=== PATIENT | female | born 1935 | race Two or more races ===

== ENCOUNTER 2016-03-11 21:11 | Inpatient (IN) | payer OTHER ==
[~2016-03-11] VITALS: Ht 157.5 cm; Wt 60.9 kg
[2016-03-11 22:47] LABS: BASO % 0 % (0-3); EOS % 1 % (0-3); LYMPH # 0.9 x10^3/uL (1.0-4.8); LYMPH % 9 % (24-48); MEAN CORPUSCULAR HEMOGLOBIN 31 pg (25-35); MEAN CORPUSCULAR HGB CONC 32 g/dL (31-37); MEAN CORPUSCULAR VOLUME 96 fL (79-100); MONO % 5 % (0-9); NEUT % 86 % (31-73); PLATELET COUNT 117 x10^3/uL (140-400); RED BLOOD COUNT 1.22 x10^6/uL (3.50-5.40); RED CELL DISTRIBUTION WIDTH 20.1 % (11.5-14.5); WHITE BLOOD COUNT 9.8 x10^3/uL (4.0-11.0)
[2016-03-11 22:53] LABS: HEMATOCRIT 11.7 % (36.0-47.0); HEMOGLOBIN 3.8 g/dL (12.0-15.5)
[2016-03-11 22:58] LABS: CALCIUM 7.7 mg/dL (8.5-10.1); CREATININE 1.2 mg/dL (0.6-1.0); POTASSIUM 4.3 mmol/L (3.5-5.1)
[2016-03-11] MEDS ORDERED: ONDANSETRON PF 4 MG/2 ML VIAL. IV PRN (23:00)
[2016-03-11] MEDS ORDERED: ACETAMINOPHEN 325 MG TABLET. PO PRN (23:00)
[2016-03-11 23:03] LABS: ALBUMIN 2.1 g/dL (3.4-5.0); ALBUMIN/GLOBULIN RATIO 0.6 (1.0-1.7); TOTAL BILIRUBIN 0.3 mg/dL (0.2-1.0); TOTAL PROTEIN 5.6 g/dL (6.4-8.2)
--- NOTE | 2016-03-11 23:09 | PHYS DOC ---
Past Medical History Past Medical History: Diabetes-Type II, GERD, Stroke, Other Additional Past Medical Histor: sleep problems Past Surgical History: Other Additional Past Surgical Histo: esophogus Alcohol Use: None Drug Use: None Adult General Chief Complaint Chief Complaint: WEAKNESS/GENERALIZED HPI HPI 80-year-old female with relatively recent history of a left scopic cholecystectomy presents with a several day history of progressive shortness of breath and dyspnea on exertion. Family states she's really been unable to give much at all because she's been so short of breath. She denies any chest pain. She denies any lower extremity swelling. She is not any fever chills sweats cough or congestion. She denies any hemoptysis. Family thinks she looks a little pale but they've not noticed any melena or hematemesis or hematochezia. [ ] Review of Systems Review of Systems Constitutional: Denies fever or chills [] Eyes: Denies change in visual acuity, redness, or eye pain [] HENT: Denies nasal congestion or sore throat [] Respiratory: Per history of present illness [] Cardiovascular: No additional information not addressed in HPI [] GI: Denies abdominal pain, nausea, vomiting, bloody stools or diarrhea [] : Denies dysuria or hematuria [] Musculoskeletal: Denies back pain or joint pain [] Integument: Denies rash or skin lesions [] Neurologic: Denies headache, focal weakness or sensory changes [] Endocrine: Denies polyuria or polydipsia [] Current Medications Current Medications Current Medications Medications (Trade) Dose Ordered Sig/Collin Start Time Stop Time Status Last Admin Dose Admin Acetaminophen (Tylenol) 650 mg PRN Q4HRS PRN 03/11/16 23:00 03/12/16 22:59 Ondansetron HCl (Zofran) 4 mg PRN Q8HRS PRN 03/11/16 23:00 03/12/16 08:58 DC Allergies Allergies Allergies Coded Allergies Type Severity Reaction Last Updated Verified No Known Drug Allergies 03/11/16 No Physical Exam Physical Exam Constitutional: Well developed, acutely ill. [] HENT: Normocephalic, atraumatic, bilateral external ears normal, oropharynx moist, no oral exudates, nose normal. [] Eyes: PERRLA, EOMI, conjunctiva normal, no discharge. [] Neck: Normal range of motion, no tenderness, supple, no stridor. [] Cardiovascular:Heart rate regular rhythm, no murmur [] Lungs & Thorax: Bilateral breath sounds clear to auscultation [] Abdomen: Bowel sounds normal, soft, no tenderness, no masses, no pulsatile masses. [] Skin: Very pale [] Back: No tenderness, no CVA tenderness. [] Extremities: No tenderness, no cyanosis, no clubbing, ROM intact, no edema. [] Neurologic: Alert and oriented X 3, normal motor function, normal sensory function, no focal deficits noted. [] Psychologic: Depressed affect. [] Current Patient Data Vital Signs Vital Signs Date Time Temp Pulse Resp B/P Pulse Ox O2 Delivery O2 Flow Rate FiO2 03/11/16 23:00 96 121/60 97 Room Air 03/11/16 21:20 97.5 14 97.5 Lab Values Laboratory Tests Test 03/11/16 22:30 White Blood Count 9.8x10^3/uL (4.0-11.0) Red Blood Count 1.22x10^6/uL (3.50-5.40) L Hemoglobin 3.8g/dL (12.0-15.5) *L Hematocrit 11.7% (36.0-47.0) *L Mean Corpuscular Volume 96fL (79-100) Mean Corpuscular Hemoglobin 31pg (25-35) Mean Corpuscular Hemoglobin Concent 32g/dL (31-37) Red Cell Distribution Width 20.1% (11.5-14.5) H Platelet Count 117x10^3/uL (140-400) L Neutrophils (%) (Auto) 86% (31-73) H Lymphocytes (%) (Auto) 9% (24-48) L Monocytes (%) (Auto) 5% (0-9) Eosinophils (%) (Auto) 1% (0-3) Basophils (%) (Auto) 0% (0-3) Neutrophils # (Auto) 8.4x10^3uL (1.8-7.7) H Lymphocytes # (Auto) 0.9x10^3/uL (1.0-4.8) L Monocytes # (Auto) 0.4x10^3/uL (0.0-1.1) Eosinophils # (Auto) 0.0x10^3/uL (0.0-0.7) Basophils # (Auto) 0.0x10^3/uL (0.0-0.2) Segmented Neutrophils % 95% (35-66) H Lymphocytes % 4% (24-48) L Monocytes % 1% (0-10) Platelet Estimate Decreased (ADEQUATE) Polychromasia Slight Hypochromasia Mod Basophilic Stippling Present Anisocytosis Mod Sodium Level 143mmol/L (136-145) Potassium Level 4.3mmol/L (3.5-5.1) Chloride Level 112mmol/L (98-107) H Carbon Dioxide Level 25mmol/L (21-32) Anion Gap 6 (6-14) Blood Urea Nitrogen 34mg/dL (7-20) H Creatinine 1.2mg/dL (0.6-1.0) H Estimated GFR (Cockcroft-Gault) 43.0 BUN/Creatinine Ratio 28 (6-20) H Glucose Level 141mg/dL (70-99) H Calcium Level 7.7mg/dL (8.5-10.1) L Total Bilirubin 0.3mg/dL (0.2-1.0) Aspartate Amino Transferase (AST) 14U/L (15-37) L Alanine Aminotransferase (ALT) 13U/L (14-59) L Alkaline Phosphatase 60U/L (46-116) Troponin I Quantitative 0.053ng/mL (0.000-0.055) TC-Yjr-W-Type Natriuretic Peptide 4254pg/mL (0-449) H Total Protein 5.6g/dL (6.4-8.2) L Albumin 2.1g/dL (3.4-5.0) L Albumin/Globulin Ratio 0.6 (1.0-1.7) L Laboratory Tests 03/11/16 22:30 Laboratory Tests 03/11/16 22:30 EKG EKG [] Radiology/Procedures Radiology/Procedures [] Course & Med Decision Making Course & Med Decision Making Pertinent Labs and Imaging studies reviewed. (See chart for details) [ED course: Evaluation reveals an 80-year-old female with significant anemia. I discussed with the family that I feel like the anemia is causing the patient's symptoms. I typed and crossed for 3 units of packed cells. I spoke with Dr. Umanzor who agreed to admit the patient for further evaluation and treatment. I will also consult GI.] Ionaon Disclaimer Dragon Disclaimer This electronic medical record was generated, in whole or in part, using a voice recognition dictation system. Departure Departure Impression: Primary Impression: Symptomatic anemia Disposition: ADMITTED INPATIENT Admitting Physician: Meena Umanzor Condition: GUARDED Referrals: CEM VALADEZ DO (PCP) DIANA HUITRON DO Mar 11, 2016 23:09
[2016-03-11 23:21] LABS: PLT ESTIMATE DECREASED (ADEQUATE)
[2016-03-11 23:22] LABS: ANISOCYTOSIS MOD; HYPOCHROMIA MOD; POLYCHROMASIA SLIGHT
[2016-03-12] VITALS (30 sets, daily range): BP systolic 71–153; BP diastolic 25–79
--- NOTE | 2016-03-12 00:51 | ACF ---
Admission Forms Criteria ANEMIA, IRON DEFICIENCY OR UNSPECIFIED Clinical Indications for Inpatient Care (Place 'X' for any and all applicable criteria): Admission is indicated for ANY ONE of the following(1)(2)(3)(4)(5)(6)(7): [X] I. Inpatient admission required rather than observation care (Also use Anemia, Iron Deficiency or Unspecified: Observation Care guideline as appropriate) because of ANY ONE of the following: [] a) Hemodynamic instability that is severe or persistent [] b) Active bleeding that cannot be rapidly controlled [X] c) CVS symptoms (i.e., dyspnea, chest pain, heart failure) that are severe or persistent [] d) Neurologic symptoms (i.e., cognitive impairment, recurrent syncope or near syncope) that are severe or persistent [] e) Cardiac arrhythmias of immediate concern [] f) Acute peripheral ischemia (e.g., pulseless, cool, mottled, or cyanotic extremity) [] g) High-risk low platelet count [] h) Acute renal failure [] i) Ongoing transfusion for blood loss (greater than 2 units) [] j) IV fluid to replace significant ongoing (eg, >24 hours) losses (> 3 L/m2 per day) [] k) Pulmonary artery catheter monitoring [] l) Supplemental oxygen or respiratory treatments for over 24 hours that are performable only in acute inpatient setting [] m) Immediate inpatient surgery [] n) Other condition, treatment or monitoring requiring inpatient admission [] II Active massive hemorrhage [] III. Active hemolysis with rapidly progressive anemia [A](6) Extended stay beyond goal length of stay may be needed for (17)(18) []a) Diagnosed cause of anemia requiring longer hospitalization (eg, active GI bleeding, immune hemolysis requiring electrophoresis, complications of malignancy requiring acute care []b) Continued emergent anemia indicators (23) []c) Transfusion reactions []d) Associated leukopenia or thrombocytopenia needing inpatient care []e) Active comorbidities (eg, renal failure, heart failure) The original [facility] content created by [facility] has been revised. The portions of the content which have been revised are identified through the use of italic text or in bold. [facility] [place] Guidelines has neither reviewed nor approved the modified material. All other unmodified content is copyright [facility]. Please see references footnoted in the original [facility] edition 2016 Admission Criteria Met?: Yes FRANCESCA NASSAR Mar 12, 2016 00:51
[2016-03-12] MEDS ORDERED: FUROSEMIDE 20 MG/2 ML VIAL IVP ONE (04:00)
--- NOTE | 2016-03-12 06:04 | EKG ---
[facility] [address] [place] [address] Test Date: 2016-03-11 Test Time: 21:34:18 Pat Name: STEPHEN DIXON Department: Room: Gender: F Laundry Helper: : 1935 Requested By: DIANA HUITRON Order Number: [id number] Reading MD: Measurements Intervals [place] Rate: 91 P: 31 IL: 140 QRS: -8 QRSD: 68 T: 7 QT: 354 QTc: 437 Interpretive Statements SINUS RHYTHM LEFTWARD AXIS NO SPECIFIC ECG ABNORMALITIES RI6.01 No previous ECG available for comparison
--- NOTE | 2016-03-12 08:02 | PDOC2 ---
GI CONSULT Reason For Consult: Anemia HPI: HPI: 80 y/o female. History from chart, staff, and daughter Carla via translator/interpreter phone - history is difficult. Evaluated in the ER for increased dyspnea. Labs show Hgb 3.8, normal indices, plt count 117, BUN 34, Cr 1.2, BNP 4254. She has been transfused two units. She was recently admitted at and had a cholecystectomy for stones (?and possible ERCP for "stones in her pancreas "). Records provided by family include only a med list which includes ASA, Pradaxa, and omeprazole; it's unclear exactly what she has been taking. Her daughter says that she has c/o "mouth pain" and then points to her chest. She has not had a bowel movement for 2 days but prior to that stools were black and loose. It's unclear if she's had previous EGD or colonoscopy. Her daughter denies previous h/o anemia. No obvious bleeding per RN. PMH: PMH: DM, CVA w/ left-sided weakness (daughter says she doesn't walk), cholecystectomy FH: Family History: No pertinent hx Social History: Smoke: No Drugs: None ROS: From daughter and pt: GEN: Denies fevers, chills, sweats HEENT: Denies blurred vision, sore throat CV: +chest pain RESP: +dyspnea GI: Per HPI : Denies hematuria, dysuria ENDO: Denies weight changes NEURO: Denies confusion, dizziness MSK: +weakness SKIN: Denies jaundice, pruritus VItals: Vitals: Vital Signs Date Time Temp Pulse Resp B/P Pulse Ox O2 Delivery O2 Flow Rate FiO2 03/12/16 07:00 66 11 119/57 100 Room Air 03/12/16 06:14 98.8 98.8 Labs: Labs: Laboratory Tests Test 03/11/16 22:30 White Blood Count 9.8x10^3/uL (4.0-11.0) Red Blood Count 1.22x10^6/uL (3.50-5.40) Hemoglobin 3.8g/dL (12.0-15.5) Hematocrit 11.7% (36.0-47.0) Mean Corpuscular Volume 96fL (79-100) Mean Corpuscular Hemoglobin 31pg (25-35) Mean Corpuscular Hemoglobin Concent 32g/dL (31-37) Red Cell Distribution Width 20.1% (11.5-14.5) Platelet Count 117x10^3/uL (140-400) Neutrophils (%) (Auto) 86% (31-73) Lymphocytes (%) (Auto) 9% (24-48) Monocytes (%) (Auto) 5% (0-9) Eosinophils (%) (Auto) 1% (0-3) Basophils (%) (Auto) 0% (0-3) Neutrophils # (Auto) 8.4x10^3uL (1.8-7.7) Lymphocytes # (Auto) 0.9x10^3/uL (1.0-4.8) Monocytes # (Auto) 0.4x10^3/uL (0.0-1.1) Eosinophils # (Auto) 0.0x10^3/uL (0.0-0.7) Basophils # (Auto) 0.0x10^3/uL (0.0-0.2) Segmented Neutrophils % 95% (35-66) Lymphocytes % 4% (24-48) Monocytes % 1% (0-10) Platelet Estimate Decreased (ADEQUATE) Polychromasia Slight Hypochromasia Mod Basophilic Stippling Present Anisocytosis Mod Sodium Level 143mmol/L (136-145) Potassium Level 4.3mmol/L (3.5-5.1) Chloride Level 112mmol/L (98-107) Carbon Dioxide Level 25mmol/L (21-32) Anion Gap 6 (6-14) Blood Urea Nitrogen 34mg/dL (7-20) Creatinine 1.2mg/dL (0.6-1.0) Estimated GFR (Cockcroft-Gault) 43.0 BUN/Creatinine Ratio 28 (6-20) Glucose Level 141mg/dL (70-99) Calcium Level 7.7mg/dL (8.5-10.1) Total Bilirubin 0.3mg/dL (0.2-1.0) Aspartate Amino Transf (AST/SGOT) 14U/L (15-37) Alanine Aminotransferase (ALT/SGPT) 13U/L (14-59) Alkaline Phosphatase 60U/L (46-116) Troponin I Quantitative 0.053ng/mL (0.000-0.055) EZ-Qsx-V-Type Natriuretic Peptide 4254pg/mL (0-449) Total Protein 5.6g/dL (6.4-8.2) Albumin 2.1g/dL (3.4-5.0) Albumin/Globulin Ratio 0.6 (1.0-1.7) Allergies: Coded Allergies: No Known Drug Allergies (Unverified , 03/11/16) Medications: Current Medications Medications (Trade) Dose Ordered Sig/Collin Route PRN Reason Start Time Stop Time Status Last Admin Dose Admin Furosemide (Lasix) 20 mg 1X ONCE IVP 03/12/16 04:00 03/12/16 04:01 DC 03/12/16 06:07 PE: GEN: NAD HEENT: Atraumatic, PERRL LUNGS: CTAB anteriorly HEART: S1S2 ABD: NABS, S/ND/NT EXTREMITY: No edema SKIN: No rashes, no jaundice NEURO/PSYCH: doesn't speak Welsh, makes eye contact A/P: A/P: Anemia -Hgb 3.8 in ER, transfusing -on Pradaxa and ASA, ?omeprazole -denies history of Black stool -no BM for 2 days, previously reported as black and loose S/p cholecystectomy -recently at (says discharge 1 week ago) SOA, elevated BNP, h/o CVA -- History is difficult w/ language barrier, even w/ translator/interpreter phone. Start PPI drip. Agree w/ transfusion. NPO. Check CXR and CT A/P r/o retroperitoneal bleed. Consider EGD later. BALDEMAR TORRES Mar 12, 2016 08:02
[2016-03-12] MEDS ORDERED: IOHEXOL 240 MG/ML 50ML VIAL. PO ONE (08:45)
[2016-03-12] MEDS ORDERED: CONTRAST GIVEN MC PRN (08:45)
[2016-03-12] MEDS ORDERED: ONDANSETRON PF 4 MG/2 ML VIAL. IV PRN (08:56)
[2016-03-12] MEDS ORDERED: ASPI81TA2 PO (09:25)
[2016-03-12] MEDS ORDERED: METO50TA2 PO (09:25)
[2016-03-12] MEDS ORDERED: DABI150C PO (09:25)
[2016-03-12] MEDS: PANTOPRAZOLE SODIUM IV 80 MG in IV NORMAL SALINE 100ML 100 ML IV SCH ×2 (09:28→14:55)
[2016-03-12] MEDS: NYSTATIN TOPICAL POWDER 15GM BOTTLE. TP SCH ×2 (09:29→21:30)
[2016-03-12 09:39] LABS: BASO % 0 % (0-3); EOS % 1 % (0-3); HEMATOCRIT 30.6 % (36.0-47.0); HEMOGLOBIN 10.3 g/dL (12.0-15.5); LYMPH # 1.3 x10^3/uL (1.0-4.8); LYMPH % 12 % (24-48); MEAN CORPUSCULAR HEMOGLOBIN 31 pg (25-35); MEAN CORPUSCULAR HGB CONC 34 g/dL (31-37); MEAN CORPUSCULAR VOLUME 91 fL (79-100); MONO % 6 % (0-9); NEUT % 81 % (31-73); PLATELET COUNT 108 x10^3/uL (140-400); RED BLOOD COUNT 3.37 x10^6/uL (3.50-5.40); RED CELL DISTRIBUTION WIDTH 14.8 % (11.5-14.5); WHITE BLOOD COUNT 10.6 x10^3/uL (4.0-11.0)
--- NOTE | 2016-03-12 10:13 | PDOC1 ---
History and Physical Date of Admission Date of Admission DATE: 03/12/16 TIME: 10:02 Identification/Chief Complaint Chief Complaint weak, change in MS Source Source: Caregiver, Chart review History of Present Illness History of Present Illness 80 y.o female who speaks no [place], hx obtained thru kyrgyz line sign language interpreter from the dtr who barely speaks any [place]. REcently dcd from 1 weeka go from what sound slike maybe laparoscopic cholecystectomy? NO lap scars appreciable Dtr relays picture of jaundice, pt stayed 7 days in < had emesis etc and resolved. SInce dcd to home, has been having significant tarry stools per dtr, no hematemesis, DTr noticed dec mentation, eyes always closed, poor pO. Pt is wheel chair bnound mostly, has a lot of contractures in legs and R hand. Claims had a hx stroke in the past but it was the left side that was weak,. Pt TAKES ASA 79 and IBUOROFEN 600-800 mg BID every day for 6-8 mos now for "leg pains". DTr agreeable to rehab if needed Hgb at ER was 3, no coags, Got 3 pRBC last night (after discussion with ER MD), and hgb 10 now, Pt for CT abd as per gI Pt has never had Cscope done, denies family hx colon ca. Pt sounds like has never had BT in the past Looking at [facility] med, pt also on PRADAXA... need to ask via sign language interpreter again why Past Medical History Cardiovascular: HTN GI: Other (black stools) Rheumatologic: Other (poss OA, contractures legs) Past Surgical History Past Surgical History: Cholecystectomy, Other Family History Family History: No Significant Social History Smoke: No ALCOHOL: none Drugs: None Current Problem List Problem List Problems Medical Problems: (1) Symptomatic anemia Status: Acute Problems: Current Medications Current Medications Current Medications Ondansetron HCl (Zofran) 4 mg PRN Q8HRS PRN IV NAUSEA/VOMITING; Start 03/11/16 at 23:00; Stop 03/12/16 at 08:58; Status DC Acetaminophen (Tylenol) 650 mg PRN Q4HRS PRN PO FEVER; Start 03/11/16 at 23:00; Stop 03/12/16 at 22:59 Furosemide (Lasix) 20 mg 1X ONCE IVP Last administered on 03/12/16 06:07; Start 03/12/16 at 04:00; Stop 03/12/16 at 04:01; Status DC Nystatin 1 ryan 1 ryan BID TP Last administered on 03/12/16 09:29; Start 03/12/16 at 09:00 Pantoprazole Sodium/Sodium Chloride (Protonix Iv/Iv Sodium Chloride 0.9% 100ml) 100 ml @ 10 mls/hr Q10H IV Last administered on 03/12/16 09:28; Start 03/12/16 at 08:30 Iohexol (Omnipaque 240 Mg/ml) 30 ml 1X ONCE PO ; Start 03/12/16 at 08:45; Stop 03/12/16 at 08:46; Status DC Info (Do NOT chart on this entry -- for MONITORING) 1 each PRN DAILY PRN MC SEE COMMENTS; Start 03/12/16 at 08:45; Stop 03/14/16 at 08:44 Ondansetron HCl (Zofran) 4 mg PRN Q6HRS PRN IV NAUSEA/VOMITING; Start 03/12/16 at 08:56 Active Scripts Active Reported Metoprolol Tartrate 50 Mg Tablet 1 Tab PO BID Pradaxa (Dabigatran Etexilate Mesylate) 150 Mg Capsule 1 Cap PO BID Aspirin 81 Mg Tab.chew 81 Mg PO Allergies Allergies: Coded Allergies: No Known Drug Allergies (Unverified , 03/11/16) ROS Review of System cant be obtained - refer to HPI Physical Exam General: No acute distress, Other (eyes closed, pale ) HEENT: Atraumatic, PERRLA, EOMI Lungs: Normal air movement Heart: S1S2, RRR, no thrills, no rubs, no gallops Cardiovascular: S1, S2 Breasts: Normal Abdomen: Normal bowel sounds Rectal Exam: not examined PELVIC: Nml ext genitalia Extremities: No clubbing, No cyanosis, No edema, Normal pulses, No tenderness/ swelling Skin: Other (palllor) Neuro: Other (cant be fully assessed) Vitals Vitals Vital Signs Date Time Temp Pulse Resp B/P Pulse Ox O2 Delivery O2 Flow Rate FiO2 03/12/16 08:00 98.4 60 12 130/54 100 Room Air 98.4 Labs Labs Laboratory Tests Test 03/11/16 22:30 03/12/16 08:53 03/12/16 09:25 White Blood Count 9.8x10^3/uL (4.0-11.0) 10.6x10^3/uL (4.0-11.0) Red Blood Count 1.22x10^6/uL (3.50-5.40) 3.37x10^6/uL (3.50-5.40) Hemoglobin 3.8g/dL (12.0-15.5) 10.3g/dL (12.0-15.5) Hematocrit 11.7% (36.0-47.0) 30.6% (36.0-47.0) Mean Corpuscular Volume 96fL (79-100) 91fL (79-100) Mean Corpuscular Hemoglobin 31pg (25-35) 31pg (25-35) Mean Corpuscular Hemoglobin Concent 32g/dL (31-37) 34g/dL (31-37) Red Cell Distribution Width 20.1% (11.5-14.5) 14.8% (11.5-14.5) Platelet Count 117x10^3/uL (140-400) 108x10^3/uL (140-400) Neutrophils (%) (Auto) 86% (31-73) 81% (31-73) Lymphocytes (%) (Auto) 9% (24-48) 12% (24-48) Monocytes (%) (Auto) 5% (0-9) 6% (0-9) Eosinophils (%) (Auto) 1% (0-3) 1% (0-3) Basophils (%) (Auto) 0% (0-3) 0% (0-3) Neutrophils # (Auto) 8.4x10^3uL (1.8-7.7) 8.6x10^3uL (1.8-7.7) Lymphocytes # (Auto) 0.9x10^3/uL (1.0-4.8) 1.3x10^3/uL (1.0-4.8) Monocytes # (Auto) 0.4x10^3/uL (0.0-1.1) 0.6x10^3/uL (0.0-1.1) Eosinophils # (Auto) 0.0x10^3/uL (0.0-0.7) 0.1x10^3/uL (0.0-0.7) Basophils # (Auto) 0.0x10^3/uL (0.0-0.2) 0.0x10^3/uL (0.0-0.2) Segmented Neutrophils % 95% (35-66) Lymphocytes % 4% (24-48) Monocytes % 1% (0-10) Platelet Estimate Decreased (ADEQUATE) Polychromasia Slight Hypochromasia Mod Basophilic Stippling Present Anisocytosis Mod Sodium Level 143mmol/L (136-145) Potassium Level 4.3mmol/L (3.5-5.1) Chloride Level 112mmol/L (98-107) Carbon Dioxide Level 25mmol/L (21-32) Anion Gap 6 (6-14) Blood Urea Nitrogen 34mg/dL (7-20) Creatinine 1.2mg/dL (0.6-1.0) Estimated GFR (Cockcroft-Gault) 43.0 BUN/Creatinine Ratio 28 (6-20) Glucose Level 141mg/dL (70-99) Calcium Level 7.7mg/dL (8.5-10.1) Total Bilirubin 0.3mg/dL (0.2-1.0) Aspartate Amino Transf (AST/SGOT) 14U/L (15-37) Alanine Aminotransferase (ALT/SGPT) 13U/L (14-59) Alkaline Phosphatase 60U/L (46-116) Troponin I Quantitative 0.053ng/mL (0.000-0.055) QF-Rxr-B-Type Natriuretic Peptide 4254pg/mL (0-449) Total Protein 5.6g/dL (6.4-8.2) Albumin 2.1g/dL (3.4-5.0) Albumin/Globulin Ratio 0.6 (1.0-1.7) Glucose (Fingerstick) 106mg/dL (70-99) Laboratory Tests Test 03/11/16 22:30 03/12/16 08:53 03/12/16 09:25 White Blood Count 9.8x10^3/uL (4.0-11.0) 10.6x10^3/uL (4.0-11.0) Red Blood Count 1.22x10^6/uL (3.50-5.40) 3.37x10^6/uL (3.50-5.40) Hemoglobin 3.8g/dL (12.0-15.5) 10.3g/dL (12.0-15.5) Hematocrit 11.7% (36.0-47.0) 30.6% (36.0-47.0) Mean Corpuscular Volume 96fL (79-100) 91fL (79-100) Mean Corpuscular Hemoglobin 31pg (25-35) 31pg (25-35) Mean Corpuscular Hemoglobin Concent 32g/dL (31-37) 34g/dL (31-37) Red Cell Distribution Width 20.1% (11.5-14.5) 14.8% (11.5-14.5) Platelet Count 117x10^3/uL (140-400) 108x10^3/uL (140-400) Neutrophils (%) (Auto) 86% (31-73) 81% (31-73) Lymphocytes (%) (Auto) 9% (24-48) 12% (24-48) Monocytes (%) (Auto) 5% (0-9) 6% (0-9) Eosinophils (%) (Auto) 1% (0-3) 1% (0-3) Basophils (%) (Auto) 0% (0-3) 0% (0-3) Neutrophils # (Auto) 8.4x10^3uL (1.8-7.7) 8.6x10^3uL (1.8-7.7) Lymphocytes # (Auto) 0.9x10^3/uL (1.0-4.8) 1.3x10^3/uL (1.0-4.8) Monocytes # (Auto) 0.4x10^3/uL (0.0-1.1) 0.6x10^3/uL (0.0-1.1) Eosinophils # (Auto) 0.0x10^3/uL (0.0-0.7) 0.1x10^3/uL (0.0-0.7) Basophils # (Auto) 0.0x10^3/uL (0.0-0.2) 0.0x10^3/uL (0.0-0.2) Segmented Neutrophils % 95% (35-66) Lymphocytes % 4% (24-48) Monocytes % 1% (0-10) Platelet Estimate Decreased (ADEQUATE) Polychromasia Slight Hypochromasia Mod Basophilic Stippling Present Anisocytosis Mod Sodium Level 143mmol/L (136-145) Potassium Level 4.3mmol/L (3.5-5.1) Chloride Level 112mmol/L (98-107) Carbon Dioxide Level 25mmol/L (21-32) Anion Gap 6 (6-14) Blood Urea Nitrogen 34mg/dL (7-20) Creatinine 1.2mg/dL (0.6-1.0) Estimated GFR (Cockcroft-Gault) 43.0 BUN/Creatinine Ratio 28 (6-20) Glucose Level 141mg/dL (70-99) Calcium Level 7.7mg/dL (8.5-10.1) Total Bilirubin 0.3mg/dL (0.2-1.0) Aspartate Amino Transf (AST/SGOT) 14U/L (15-37) Alanine Aminotransferase (ALT/SGPT) 13U/L (14-59) Alkaline Phosphatase 60U/L (46-116) Troponin I Quantitative 0.053ng/mL (0.000-0.055) RR-Ema-F-Type Natriuretic Peptide 4254pg/mL (0-449) Total Protein 5.6g/dL (6.4-8.2) Albumin 2.1g/dL (3.4-5.0) Albumin/Globulin Ratio 0.6 (1.0-1.7) Glucose (Fingerstick) 106mg/dL (70-99) VTE Prophylaxis Ordered VTE Prophylaxis Devices: Contraindicated VTE Pharmacological Prophylaxi: Contraindicated Assessment/Plan Assessment/Plan 1. SEVERE ACUTE SYMPTOMATIC ANEMIA, precipitous drop in hgb, hgb 3 on ASA< nSAIDs and PRADAXA at home - difftls include PUD, gastritis, stress induced gastritis given recent 1 week hospitalization, bleeding from chrrnic use ASA adn NSAID - on PPI iV gtt - NPO incase EGD today - GI consulted - no blood thinners or ASA pls - dw pt and dtr and engineering patternmaker at bedside - coags not obtained at eR, pt already had 3 units, MCV is 90s (not microcytic) 2. Superficial candidiasis in the groin - nystatin; wound care 3. Urinary incontinence 4. R hand and pelvic contractures - PT/OT - m,ay benefit from muscle relaxant? 5. Hx CVA 2012, wheel chair bound 6. Acute encephalopathy likely sec to current active med issues i,.e. # 1 7. HTN - hold Metoprolol for now 8. Trun q2, unfortuantely SCDS only OBtain med records from PLan of care CLIENT SERVICES ACCOUNT MANAGER and dtr CUmultaiuve time including kyr[place]z kaycee CC 45 mins at least MARCELINO DIAZ MD Mar 12, 2016 10:13
--- NOTE | 2016-03-12 10:32 | RAD ---
CT of the head without contrast, 03/12/2016: History: Mental status change There is moderate cerebral atrophy. There are moderate patchy lucencies in the deep white matter bilaterally compatible with chronic ischemic change. The ventricles are mildly enlarged on a compensatory basis. There is no shift of the midline structures. There is a cortical calcification in the left frontal region and an additional small calcification in the left temporal lobe. These are probably due to prior infection or infarction. Mild basal ganglia calcifications are evident. There is calcific plaque in the distal internal carotid and vertebral arteries. No abnormal extra-axial fluid collection or mass is seen. IMPRESSION: 1. Chronic findings as described above. 2. No acute intracranial abnormality is detected.
--- NOTE | 2016-03-12 11:19 | RAD ---
CT of the abdomen and pelvis without contrast, 03/12/2016: History: Anemia, recent cholecystectomy Multidetector CT imaging was performed following oral administration of contrast. No IV contrast was administered due to the patient's renal insufficiency. Artifacts arising from the patient's arms partially degrade image quality. There are small bilateral pleural effusions. There is mild streaky atelectasis posteriorly in both lung bases. Moderate coronary artery calcifications are evident. Pneumobilia is present within the ducts in the left lobe of liver as well as in the common bile duct. There is a questionable history of a cholecystectomy. There is an oval-shaped, 5.6 x 2.8 cm gas collection in the gallbladder fossa region which also contains radiopaque material, presumably oral contrast. This lies adjacent to the second portion of the duodenum and the cystic duct remnant. The fact that it contains radiopaque material suggests that it connects to the GI tract. There is a 2.5 cm duodenal diverticulum noted arising from the proximal third portion of the duodenum adjacent to the pancreatic head. No intrinsic pancreatic abnormality is seen. The spleen is of normal size. There are tiny bilateral intrarenal calcifications. Some of these may be vascular. There is bilateral renal cortical scarring. There is no evidence of hydronephrosis. There is moderate calcific plaquing of the abdominal aorta and its branches without evidence of aneurysm. No abdominal or pelvic adenopathy is seen. There is a moderate-sized fecal impaction in the rectosigmoid. There are scattered collections of stool throughout the remainder of the colon. Scattered colonic diverticula are present. The small bowel loops are unremarkable. No free air or significant free fluid is evident in the abdomen or pelvis. There are streaky subcutaneous opacities in the flank and hip regions bilaterally compatible with anasarca. There is a mild vertebral compression deformity at L1 of indeterminant age. There are moderate scattered degenerative changes in the spine. A dense sclerotic focus in the left iliac bone is probably a bone island. A blastic bony metastasis cannot be entirely excluded. IMPRESSION: 1. Moderate rectal fecal impaction. 2. Colonic diverticulosis. 3. Pneumobilia which may be on a postoperative basis or related to a previous sphincterotomy. 4. Thin-walled gas containing structure in the gallbladder fossa resembling a gallbladder with the presence of gas presumably due to the pneumobilia. If the gallbladder is truly absent, than other diagnostic considerations would include a postoperative fluid collection such as a biloma or an unusual duodenal diverticulum. Correlation with the patient's exact surgical history is suggested. 5. Duodenal diverticulum. 6. Anasarca. 7. Small bilateral pleural effusions. 8. L1 vertebral compression fracture of indeterminate age.
--- NOTE | 2016-03-12 11:46 | RAD ---
Indication: Short of air. Elevated BNP. Technique: Upright portable chest radiograph was obtained. No comparison is available. Findings: The heart is upper limits of normal in size. The pulmonary vasculature is mildly cephalized although there is no interstitial prominence or focal airspace disease. There is atheromatous disease in the thoracic aorta. Chronic rotator cuff tears bilaterally are suspected. Leads overlie the patient. Impression: Borderline cardiomegaly with mild vascular congestion suspected.
[2016-03-12] MEDS ORDERED: VITS A & D/LANOLIN TOPICAL OINTMENT 56GM TUBE. TP PRN (17:30)
--- NOTE | 2016-03-12 17:58 | EKG ---
[facility] [address] [place] [address] Test Date: 2016-03-12 Test Time: 18:04:06 Pat Name: STEPHEN DIXON Department: Room: 104 1 Gender: F Contract Driver: : [id number] Requested By: MARCELINO DIAZ Order Number: [id number] Reading MD: Measurements Intervals [place] Rate: 83 P: 0 WA: 118 QRS: -10 QRSD: 72 T: 14 QT: 358 QTc: 421 Interpretive Statements SINUS RHYTHM LEFTWARD AXIS OTHERWISE NORMAL ECG RI6.01 No previous ECG available for comparison
[2016-03-13] VITALS (13 sets, daily range): BP systolic 98–155; BP diastolic 43–74
[2016-03-13] MEDS: PANTOPRAZOLE SODIUM IV 80 MG in IV NORMAL SALINE 100ML 100 ML IV SCH ×2 (00:04→09:23)
--- NOTE | 2016-03-13 04:42 | CONS ---
DATE OF CONSULTATION: 03/12/2016 ATTENDING PHYSICIAN: Dr. Umanzor REASON FOR CONSULTATION: The patient was seen at the request of Dr. Umanzor for rehab evaluation. HISTORY OF PRESENT ILLNESS: This is an 80-year-old female with history of cerebrovascular accident about four years ago. At that time, she had gone through inpatient rehab, later home health therapy. The patient has been taking care by her daughter. The patient can feed herself with her right hand, sometimes she requires some help with the feeding. She is mainly bedridden, gets up with maximal help. The patient had 2 stairs to manage to enter the lower level of the house. The patient admits pain on attempted range of motion of her extremity joints. The patient with known hypertension, status post recent laparoscopic cholecystectomy done at [facility] about a week ago. The patient was admitted with changes in her mental status and weakness on 03/12/2016. She also had tarry black stools since her discharge from [facility] and her daughter noted her with decreased mentation, eyes always closed, poor oral intake. She is not known allergic to any medication. She takes aspirin and ibuprofen for leg pains. In the Emergency Room, she was noted with hemoglobin of 3, requiring 3 units of packed red blood cells transfusion, hemoglobin around [address] scan of the brain failed to reveal any acute abnormalities. It revealed moderate patchy lucencies in the deep white matter bilaterally compatible with chronic ischemic change, mildly enlarged ventricles, no shift of midline structures, cortical calcification in left frontal region and in addition, a small calcification in the left temporal region probably due to prior infection or infarction, mild basal ganglia calcifications and calcific plaque in the distal internal carotid and vertebral arteries, no extraaxial fluid collection or mass was noted. CT scan of the abdomen and pelvis revealed moderate rectal fecal impaction, colonic diverticulosis, pneumobilia which may be on a postoperative basis related to a previous sphincterotomy, thin-walled gas containing structure in the gallbladder fossa resembling a gallbladder in the presence of gas, presumably due to pneumobilia. If her gallbladder is truly absent then other diagnostic considerations would include postoperative fluid collection such that biloma or unusual duodenal diverticulum, duodenal diverticulum was noted, anasarca, small bilateral pleural effusions, L1 vertebral body compression fracture of indeterminate age. Chest x-ray revealed borderline cardiomegaly with mild vascular congestion. PHYSICAL EXAMINATION: Today revealed an elderly female. The patient is alert, follows commands. She moves all 4 extremities voluntarily. She had significant stiffness of left shoulder and both lower extremity joints including hips, knees and she had plantar flexion contractures of both ankles with significant edema of her feet and ankles. She had pain on attempted range of motion of upper extremity joints including right elbow. She had flexion contracture of left fourth and fifth fingers. The patient had intact skin at this time. I have not tested her transfers or ambulation skills at this time. No obvious visual field cut noted. Deep tendon reflexes are absent at both knees and ankles and she had equal perception of touch and pinprick sensation bilaterally. 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 The patient with a recent laparoscopic cholecystectomy with probable rectal bleeding and anemia. She also had degenerative joint disease of her knees. The patient with known hypertension. RECOMMENDATIONS: She is not a candidate for any inpatient rehab program, when medically stable, with home health followup. Dr. Umanzor, I appreciate asking me to participate in care of this interesting patient. I will be glad to follow her with you as needed for her rehabilitation. CHI JAY MD DR: LC/jc JOB#: [id number] / [id number]
[2016-03-13 06:10] LABS: BASO % 0 % (0-3); CALCIUM 7.6 mg/dL (8.5-10.1); CREATININE 1.2 mg/dL (0.6-1.0); EOS % 1 % (0-3); HEMATOCRIT 27.4 % (36.0-47.0); HEMOGLOBIN 9.5 g/dL (12.0-15.5); LYMPH # 1.2 x10^3/uL (1.0-4.8); LYMPH % 14 % (24-48); MEAN CORPUSCULAR HEMOGLOBIN 31 pg (25-35); MEAN CORPUSCULAR HGB CONC 35 g/dL (31-37); MEAN CORPUSCULAR VOLUME 90 fL (79-100); MONO % 7 % (0-9); NEUT % 77 % (31-73); PLATELET COUNT 107 x10^3/uL (140-400); POTASSIUM 3.8 mmol/L (3.5-5.1); RED BLOOD COUNT 3.04 x10^6/uL (3.50-5.40); RED CELL DISTRIBUTION WIDTH 15.2 % (11.5-14.5); WHITE BLOOD COUNT 8.7 x10^3/uL (4.0-11.0)
[2016-03-13] MEDS ORDERED: HYDROMORPHONE 2 MG/ML VIAL. IV PRN (07:00)
[2016-03-13] MEDS ORDERED: IV RINGERS,LACTATED 1000ML 1,000 ML IV SCH (07:00)
[2016-03-13] MEDS ORDERED: ONDANSETRON PF 4 MG/2 ML VIAL. IV PRN (07:00)
[2016-03-13] MEDS ORDERED: LIDOCAINE 1% 1 ML SYRINGE. ID PRN (07:00)
[2016-03-13] MEDS ORDERED: MORPHINE SULFATE 2 MG/ML DISP.SYRIN. IV PRN (07:00)
[2016-03-13] MEDS ORDERED: PROCHLORPERAZINE 10 MG/2 ML VIAL. IV PRN (07:00)
[2016-03-13] MEDS ORDERED: FENTANYL PF 100 MCG/2 ML VIAL. IV PRN ×2 (07:00)
[2016-03-13] MEDS: NYSTATIN TOPICAL POWDER 15GM BOTTLE. TP SCH (09:23)
--- NOTE | 2016-03-13 09:24 | PDOC ---
PROGRESS NOTES Chief Complaint Chief Complaint 1. SEVERE ACUTE SYMPTOMATIC ANEMIA, precipitous drop in hgb, hgb 3 on ASA, nSAIDs and PRADAXA at home -s/p 3 units pRBC 2. Superficial candidiasis in the groin - nystatin; wound care 3. Urinary incontinence 4. R hand and pelvic contractures - PT/OT - m,ay benefit from muscle relaxant? 5. Hx CVA 2012, wheel chair bound - cant particiapte with rehab hence will go home with dtr 6. Acute encephalopathy likely sec to current active med issues i,.e. # 1 7. HTN - hold Metoprolol for now 8. Trun q2, unfortuantely SCDS only History of Present Illness History of Present Illness CT abd reviewed, pneumobilia vs normal post op changes (recent lap tejinder at - last week) Pt does not have abd pain, RUQ area Hgb 9, VS ok Scheduled for EGD later 11 AM PLAN EGD later COnt IVF Planned for video swallow by [employer]ER Pt will go home upon dc - no benefit rehab bec of contractures (appreciate physiatry) Dw dtr at bedside Ok to t/o ICU after EGD if hemodynamically stable post procedure NO pRadaxa, ASa and nsaids pls Vitals Vitals Vital Signs Date Time Temp Pulse Resp B/P Pulse Ox O2 Delivery O2 Flow Rate FiO2 03/13/16 07:00 72 13 111/54 96 Room Air 03/13/16 04:00 98.7 98.7 Physical Exam General: No acute distress, Other (eyes closed, pale ) Abdomen: Normal bowel sounds Extremities: No clubbing, No cyanosis, No edema, Normal pulses, No tenderness/ swelling Skin: Other (palllor) Labs LABS Laboratory Tests Test 03/12/16 09:25 03/12/16 18:20 03/13/16 05:00 White Blood Count 10.6x10^3/uL (4.0-11.0) 8.7x10^3/uL (4.0-11.0) Red Blood Count 3.37x10^6/uL (3.50-5.40) 3.04x10^6/uL (3.50-5.40) Hemoglobin 10.3g/dL (12.0-15.5) 9.5g/dL (12.0-15.5) Hematocrit 30.6% (36.0-47.0) 27.4% (36.0-47.0) Mean Corpuscular Volume 91fL (79-100) 90fL (79-100) Mean Corpuscular Hemoglobin 31pg (25-35) 31pg (25-35) Mean Corpuscular Hemoglobin Concent 34g/dL (31-37) 35g/dL (31-37) Red Cell Distribution Width 14.8% (11.5-14.5) 15.2% (11.5-14.5) Platelet Count 108x10^3/uL (140-400) 107x10^3/uL (140-400) Neutrophils (%) (Auto) 81% (31-73) 77% (31-73) Lymphocytes (%) (Auto) 12% (24-48) 14% (24-48) Monocytes (%) (Auto) 6% (0-9) 7% (0-9) Eosinophils (%) (Auto) 1% (0-3) 1% (0-3) Basophils (%) (Auto) 0% (0-3) 0% (0-3) Neutrophils # (Auto) 8.6x10^3uL (1.8-7.7) 6.7x10^3uL (1.8-7.7) Lymphocytes # (Auto) 1.3x10^3/uL (1.0-4.8) 1.2x10^3/uL (1.0-4.8) Monocytes # (Auto) 0.6x10^3/uL (0.0-1.1) 0.6x10^3/uL (0.0-1.1) Eosinophils # (Auto) 0.1x10^3/uL (0.0-0.7) 0.1x10^3/uL (0.0-0.7) Basophils # (Auto) 0.0x10^3/uL (0.0-0.2) 0.0x10^3/uL (0.0-0.2) Troponin I Quantitative 0.036ng/mL (0.000-0.055) Sodium Level 142mmol/L (136-145) Potassium Level 3.8mmol/L (3.5-5.1) Chloride Level 110mmol/L (98-107) Carbon Dioxide Level 24mmol/L (21-32) Anion Gap 8 (6-14) Blood Urea Nitrogen 38mg/dL (7-20) Creatinine 1.2mg/dL (0.6-1.0) Estimated GFR (Cockcroft-Gault) 43.0 Glucose Level 80mg/dL (70-99) Calcium Level 7.6mg/dL (8.5-10.1) Review of Systems Review of Systems limited, speaks swedish only Assessment and Plan Assessmemt and Plan Problems Medical Problems: (1) Symptomatic anemia Status: Acute Problems: Comment Review of Relevant I have reviewed the following items [place] (where applicable) has been applied. Labs Laboratory Tests Test 03/11/16 22:30 03/12/16 01:30 03/12/16 08:53 03/12/16 09:25 White Blood Count 9.8x10^3/uL (4.0-11.0) 10.6x10^3/uL (4.0-11.0) Red Blood Count 1.22x10^6/uL (3.50-5.40) 3.37x10^6/uL (3.50-5.40) Hemoglobin 3.8g/dL (12.0-15.5) 10.3g/dL (12.0-15.5) Hematocrit 11.7% (36.0-47.0) 30.6% (36.0-47.0) Mean Corpuscular Volume 96fL (79-100) 91fL (79-100) Mean Corpuscular Hemoglobin 31pg (25-35) 31pg (25-35) Mean Corpuscular Hemoglobin Concent 32g/dL (31-37) 34g/dL (31-37) Red Cell Distribution Width 20.1% (11.5-14.5) 14.8% (11.5-14.5) Platelet Count 117x10^3/uL (140-400) 108x10^3/uL (140-400) Neutrophils (%) (Auto) 86% (31-73) 81% (31-73) Lymphocytes (%) (Auto) 9% (24-48) 12% (24-48) Monocytes (%) (Auto) 5% (0-9) 6% (0-9) Eosinophils (%) (Auto) 1% (0-3) 1% (0-3) Basophils (%) (Auto) 0% (0-3) 0% (0-3) Neutrophils # (Auto) 8.4x10^3uL (1.8-7.7) 8.6x10^3uL (1.8-7.7) Lymphocytes # (Auto) 0.9x10^3/uL (1.0-4.8) 1.3x10^3/uL (1.0-4.8) Monocytes # (Auto) 0.4x10^3/uL (0.0-1.1) 0.6x10^3/uL (0.0-1.1) Eosinophils # (Auto) 0.0x10^3/uL (0.0-0.7) 0.1x10^3/uL (0.0-0.7) Basophils # (Auto) 0.0x10^3/uL (0.0-0.2) 0.0x10^3/uL (0.0-0.2) Segmented Neutrophils % 95% (35-66) Lymphocytes % 4% (24-48) Monocytes % 1% (0-10) Platelet Estimate Decreased (ADEQUATE) Polychromasia Slight Hypochromasia Mod Basophilic Stippling Present Anisocytosis Mod Sodium Level 143mmol/L (136-145) Potassium Level 4.3mmol/L (3.5-5.1) Chloride Level 112mmol/L (98-107) Carbon Dioxide Level 25mmol/L (21-32) Anion Gap 6 (6-14) Blood Urea Nitrogen 34mg/dL (7-20) Creatinine 1.2mg/dL (0.6-1.0) Estimated GFR (Cockcroft-Gault) 43.0 BUN/Creatinine Ratio 28 (6-20) Glucose Level 141mg/dL (70-99) Calcium Level 7.7mg/dL (8.5-10.1) Total Bilirubin 0.3mg/dL (0.2-1.0) Aspartate Amino Transf (AST/SGOT) 14U/L (15-37) Alanine Aminotransferase (ALT/SGPT) 13U/L (14-59) Alkaline Phosphatase 60U/L (46-116) Troponin I Quantitative 0.053ng/mL (0.000-0.055) VM-Jrj-V-Type Natriuretic Peptide 4254pg/mL (0-449) Total Protein 5.6g/dL (6.4-8.2) Albumin 2.1g/dL (3.4-5.0) Albumin/Globulin Ratio 0.6 (1.0-1.7) Nasal Screen MRSA (PCR) Negative (Negative) Glucose (Fingerstick) 106mg/dL (70-99) Test 03/12/16 18:20 03/13/16 05:00 Troponin I Quantitative 0.036ng/mL (0.000-0.055) White Blood Count 8.7x10^3/uL (4.0-11.0) Red Blood Count 3.04x10^6/uL (3.50-5.40) Hemoglobin 9.5g/dL (12.0-15.5) Hematocrit 27.4% (36.0-47.0) Mean Corpuscular Volume 90fL (79-100) Mean Corpuscular Hemoglobin 31pg (25-35) Mean Corpuscular Hemoglobin Concent 35g/dL (31-37) Red Cell Distribution Width 15.2% (11.5-14.5) Platelet Count 107x10^3/uL (140-400) Neutrophils (%) (Auto) 77% (31-73) Lymphocytes (%) (Auto) 14% (24-48) Monocytes (%) (Auto) 7% (0-9) Eosinophils (%) (Auto) 1% (0-3) Basophils (%) (Auto) 0% (0-3) Neutrophils # (Auto) 6.7x10^3uL (1.8-7.7) Lymphocytes # (Auto) 1.2x10^3/uL (1.0-4.8) Monocytes # (Auto) 0.6x10^3/uL (0.0-1.1) Eosinophils # (Auto) 0.1x10^3/uL (0.0-0.7) Basophils # (Auto) 0.0x10^3/uL (0.0-0.2) Sodium Level 142mmol/L (136-145) Potassium Level 3.8mmol/L (3.5-5.1) Chloride Level 110mmol/L (98-107) Carbon Dioxide Level 24mmol/L (21-32) Anion Gap 8 (6-14) Blood Urea Nitrogen 38mg/dL (7-20) Creatinine 1.2mg/dL (0.6-1.0) Estimated GFR (Cockcroft-Gault) 43.0 Glucose Level 80mg/dL (70-99) Calcium Level 7.6mg/dL (8.5-10.1) Laboratory Tests Test 03/12/16 09:25 03/12/16 18:20 03/13/16 05:00 White Blood Count 10.6x10^3/uL (4.0-11.0) 8.7x10^3/uL (4.0-11.0) Red Blood Count 3.37x10^6/uL (3.50-5.40) 3.04x10^6/uL (3.50-5.40) Hemoglobin 10.3g/dL (12.0-15.5) 9.5g/dL (12.0-15.5) Hematocrit 30.6% (36.0-47.0) 27.4% (36.0-47.0) Mean Corpuscular Volume 91fL (79-100) 90fL (79-100) Mean Corpuscular Hemoglobin 31pg (25-35) 31pg (25-35) Mean Corpuscular Hemoglobin Concent 34g/dL (31-37) 35g/dL (31-37) Red Cell Distribution Width 14.8% (11.5-14.5) 15.2% (11.5-14.5) Platelet Count 108x10^3/uL (140-400) 107x10^3/uL (140-400) Neutrophils (%) (Auto) 81% (31-73) 77% (31-73) Lymphocytes (%) (Auto) 12% (24-48) 14% (24-48) Monocytes (%) (Auto) 6% (0-9) 7% (0-9) Eosinophils (%) (Auto) 1% (0-3) 1% (0-3) Basophils (%) (Auto) 0% (0-3) 0% (0-3) Neutrophils # (Auto) 8.6x10^3uL (1.8-7.7) 6.7x10^3uL (1.8-7.7) Lymphocytes # (Auto) 1.3x10^3/uL (1.0-4.8) 1.2x10^3/uL (1.0-4.8) Monocytes # (Auto) 0.6x10^3/uL (0.0-1.1) 0.6x10^3/uL (0.0-1.1) Eosinophils # (Auto) 0.1x10^3/uL (0.0-0.7) 0.1x10^3/uL (0.0-0.7) Basophils # (Auto) 0.0x10^3/uL (0.0-0.2) 0.0x10^3/uL (0.0-0.2) Troponin I Quantitative 0.036ng/mL (0.000-0.055) Sodium Level 142mmol/L (136-145) Potassium Level 3.8mmol/L (3.5-5.1) Chloride Level 110mmol/L (98-107) Carbon Dioxide Level 24mmol/L (21-32) Anion Gap 8 (6-14) Blood Urea Nitrogen 38mg/dL (7-20) Creatinine 1.2mg/dL (0.6-1.0) Estimated GFR (Cockcroft-Gault) 43.0 Glucose Level 80mg/dL (70-99) Calcium Level 7.6mg/dL (8.5-10.1) Medications Current Medications Ondansetron HCl (Zofran) 4 mg PRN Q8HRS PRN IV NAUSEA/VOMITING; Start 03/11/16 at 23:00; Stop 03/12/16 at 08:58; Status DC Acetaminophen (Tylenol) 650 mg PRN Q4HRS PRN PO FEVER; Start 03/11/16 at 23:00; Stop 03/12/16 at 22:59; Status DC Furosemide (Lasix) 20 mg 1X ONCE IVP Last administered on 03/12/16t 06:07; Start 03/12/16 at 04:00; Stop 03/12/16 at 04:01; Status DC Nystatin 1 ryan 1 ryan BID TP Last administered on 03/12/16t 21:30; Start 03/12/16 at 09:00 Pantoprazole Sodium/Sodium Chloride (Protonix Iv/Iv Sodium Chloride 0.9% 100ml) 100 ml @ 10 mls/hr Q10H IV Last administered on 03/13/16 00:04; Start 03/12/16 at 08:30 Iohexol (Omnipaque 240 Mg/ml) 30 ml 1X ONCE PO ; Start 03/12/16 at 08:45; Stop 03/12/16 at 08:46; Status DC Info (Do NOT chart on this entry -- for MONITORING) 1 each PRN DAILY PRN MC SEE COMMENTS; Start 03/12/16 at 08:45; Stop 03/14/16 at 08:44 Ondansetron HCl (Zofran) 4 mg PRN Q6HRS PRN IV NAUSEA/VOMITING; Start 03/12/16 at 08:56 Ondansetron HCl (Zofran) 4 mg PRN Q6HRS PRN IV Nausea; Start 03/13/16 at 07:00; Stop 03/14/16 at 06:59 Fentanyl Citrate (Fentanyl 2ml Vial) 25 mcg PRN Q5MIN PRN IV MILD PAIN; Start 03/13/16 at 07:00; Stop 03/14/16 at 06:59 Fentanyl Citrate (Fentanyl 2ml Vial) 50 mcg PRN Q5MIN PRN IV MODERATE PAIN; Start 03/13/16 at 07:00; Stop 03/14/16 at 06:59 Morphine Sulfate 1 mg 1 mg PRN Q10MIN PRN IV SEVERE PAIN; Start 03/13/16 at 07: 00; Stop 03/14/16 at 06:59 Lactated Ringer's (Iv Lactated Ringers) 1,000 ml @ 0 mls/hr Q0M IV ; Start 03/13 at 07:00; Stop 03/13/16 at 18:59 Lidocaine HCl 2 ml 1X PRN PRN ID IV START; Start 03/13/16 at 07:00; Stop at 06:59 Hydromorphone HCl (Dilaudid) 0.5 mg PRN Q10MIN PRN IV SEVERE PAIN, Second choice; Start 03/13/16 at 07:00; Stop 03/14/16 at 06:59 Prochlorperazine Edisylate (Compazine) 5 mg PACU PRN PRN IV NAUSEA; Start at 07:00; Stop 03/14/16 at 06:59 Vitamin A/Vitamin D (Vitamin A & D Ointment) 1 ryan PRN TID PRN TP SKIN PROTECTION; Start 03/12/16 at 17:30 Active Scripts Active Reported Metoprolol Tartrate 50 Mg Tablet 1 Tab PO BID Pradaxa (Dabigatran Etexilate Mesylate) 150 Mg Capsule 1 Cap PO BID Aspirin 81 Mg Tab.chew 81 Mg PO Vitals/I & O Vital Sign - Last 24 Hours 03/12/16 03/12/16 03/12/16 03/12/16 10:00 12:00 12:00 13:00 Temp 97.2 97.2 Pulse 71 70 70 Resp 12 11 11 B/P 113/67 105/49 Pulse Ox 100 99 99 O2 Delivery Room Air Room Air Room Air Room Air 03/12/16 03/12/16 03/12/16 03/12/16 14:00 15:00 16:00 16:00 Temp 98.8 98.8 Pulse 78 72 70 Resp 10 10 10 B/P 125/61 Pulse Ox 99 99 99 O2 Delivery Room Air Room Air Room Air Room Air 03/12/16 03/12/16 03/12/16 03/12/16 17:00 18:00 19:00 20:00 Temp 98.9 98.9 Pulse 77 76 76 84 Resp 12 11 12 12 B/P 104/46 153/79 Pulse Ox 100 99 99 98 O2 Delivery Room Air Room Air Room Air Room Air 03/12/16 03/12/16 03/12/16 03/12/16 20:00 21:00 22:00 23:00 Pulse 90 85 87 Resp 12 12 12 B/P 125/63 135/61 122/62 Pulse Ox 99 98 98 O2 Delivery Room Air Room Air Room Air Room Air 03/13/16 03/13/16 03/13/16 03/13/16 00:00 00:00 01:00 02:00 Temp 98.6 98.6 Pulse 73 76 74 Resp 12 12 13 B/P 143/63 106/48 105/43 Pulse Ox 98 98 98 O2 Delivery Room Air Room Air Room Air Room Air 03/13/16 03/13/16 03/13/16 03/13/16 03:00 04:00 04:00 05:00 Temp 98.7 98.7 Pulse 74 76 74 Resp 13 14 13 B/P 123/50 108/49 98/43 Pulse Ox 99 97 97 O2 Delivery Room Air Room Air Room Air Room Air 03/13/16 03/13/16 06:00 07:00 Pulse 76 72 Resp 12 13 B/P 114/50 111/54 Pulse Ox 99 96 O2 Delivery Room Air Room Air Intake and Output 03/12/16 03/12/16 03/13/16 15:00 23:00 07:00 Intake Total 30 ml 180 ml 0 ml Balance 30 ml 180 ml 0 ml MARCELINO DIAZ MD Mar 13, 2016 09:24
[2016-03-13] MEDS ORDERED: LIDOCAINE 2% PF Vial for OR 5 ML VIAL. ONE (10:03)
[2016-03-13] MEDS ORDERED: PROPOFOL 20 ML IV ONE (10:03)
--- NOTE | 2016-03-13 10:26 | PDOC ---
PROGRESS NOTES Subjective Subjective No new problems. Objective Objective Vital Signs Date Time Temp Pulse Resp B/P Pulse Ox O2 Delivery O2 Flow Rate FiO2 03/13/16 10:04 98.2 100 18 99 98.2 03/13/16 09:00 123/55 Room Air Intake and Output 03/13/16 07:00 Intake Total 210 ml Balance 210 ml Intake Oral 0 ml IV Total 100 ml Blood Product 50 ml Blood Product IV Normal Saline Flush 30 ml Other 30 ml # Voids 7 Physical Exam Physical Exam Patient is having EGD done this AM.I spoke to her daughter and nursing. Assessment Assessment Problems Medical Problems: (1) Symptomatic anemia Status: Acute Plan Plan of Long Term with home health follow up when medically stable. Comment Review of Relevant I have reviewed the following items [place] (where applicable) has been applied. Labs Laboratory Tests Test 03/11/16 22:30 03/12/16 01:30 03/12/16 08:53 03/12/16 09:25 White Blood Count 9.8x10^3/uL (4.0-11.0) 10.6x10^3/uL (4.0-11.0) Red Blood Count 1.22x10^6/uL (3.50-5.40) 3.37x10^6/uL (3.50-5.40) Hemoglobin 3.8g/dL (12.0-15.5) 10.3g/dL (12.0-15.5) Hematocrit 11.7% (36.0-47.0) 30.6% (36.0-47.0) Mean Corpuscular Volume 96fL (79-100) 91fL (79-100) Mean Corpuscular Hemoglobin 31pg (25-35) 31pg (25-35) Mean Corpuscular Hemoglobin Concent 32g/dL (31-37) 34g/dL (31-37) Red Cell Distribution Width 20.1% (11.5-14.5) 14.8% (11.5-14.5) Platelet Count 117x10^3/uL (140-400) 108x10^3/uL (140-400) Neutrophils (%) (Auto) 86% (31-73) 81% (31-73) Lymphocytes (%) (Auto) 9% (24-48) 12% (24-48) Monocytes (%) (Auto) 5% (0-9) 6% (0-9) Eosinophils (%) (Auto) 1% (0-3) 1% (0-3) Basophils (%) (Auto) 0% (0-3) 0% (0-3) Neutrophils # (Auto) 8.4x10^3uL (1.8-7.7) 8.6x10^3uL (1.8-7.7) Lymphocytes # (Auto) 0.9x10^3/uL (1.0-4.8) 1.3x10^3/uL (1.0-4.8) Monocytes # (Auto) 0.4x10^3/uL (0.0-1.1) 0.6x10^3/uL (0.0-1.1) Eosinophils # (Auto) 0.0x10^3/uL (0.0-0.7) 0.1x10^3/uL (0.0-0.7) Basophils # (Auto) 0.0x10^3/uL (0.0-0.2) 0.0x10^3/uL (0.0-0.2) Segmented Neutrophils % 95% (35-66) Lymphocytes % 4% (24-48) Monocytes % 1% (0-10) Platelet Estimate Decreased (ADEQUATE) Polychromasia Slight Hypochromasia Mod Basophilic Stippling Present Anisocytosis Mod Sodium Level 143mmol/L (136-145) Potassium Level 4.3mmol/L (3.5-5.1) Chloride Level 112mmol/L (98-107) Carbon Dioxide Level 25mmol/L (21-32) Anion Gap 6 (6-14) Blood Urea Nitrogen 34mg/dL (7-20) Creatinine 1.2mg/dL (0.6-1.0) Estimated GFR (Cockcroft-Gault) 43.0 BUN/Creatinine Ratio 28 (6-20) Glucose Level 141mg/dL (70-99) Calcium Level 7.7mg/dL (8.5-10.1) Total Bilirubin 0.3mg/dL (0.2-1.0) Aspartate Amino Transf (AST/SGOT) 14U/L (15-37) Alanine Aminotransferase (ALT/SGPT) 13U/L (14-59) Alkaline Phosphatase 60U/L (46-116) Troponin I Quantitative 0.053ng/mL (0.000-0.055) FB-Ujr-B-Type Natriuretic Peptide 4254pg/mL (0-449) Total Protein 5.6g/dL (6.4-8.2) Albumin 2.1g/dL (3.4-5.0) Albumin/Globulin Ratio 0.6 (1.0-1.7) Nasal Screen MRSA (PCR) Negative (Negative) Glucose (Fingerstick) 106mg/dL (70-99) Test 03/12/16 18:20 03/13/16 05:00 Troponin I Quantitative 0.036ng/mL (0.000-0.055) White Blood Count 8.7x10^3/uL (4.0-11.0) Red Blood Count 3.04x10^6/uL (3.50-5.40) Hemoglobin 9.5g/dL (12.0-15.5) Hematocrit 27.4% (36.0-47.0) Mean Corpuscular Volume 90fL (79-100) Mean Corpuscular Hemoglobin 31pg (25-35) Mean Corpuscular Hemoglobin Concent 35g/dL (31-37) Red Cell Distribution Width 15.2% (11.5-14.5) Platelet Count 107x10^3/uL (140-400) Neutrophils (%) (Auto) 77% (31-73) Lymphocytes (%) (Auto) 14% (24-48) Monocytes (%) (Auto) 7% (0-9) Eosinophils (%) (Auto) 1% (0-3) Basophils (%) (Auto) 0% (0-3) Neutrophils # (Auto) 6.7x10^3uL (1.8-7.7) Lymphocytes # (Auto) 1.2x10^3/uL (1.0-4.8) Monocytes # (Auto) 0.6x10^3/uL (0.0-1.1) Eosinophils # (Auto) 0.1x10^3/uL (0.0-0.7) Basophils # (Auto) 0.0x10^3/uL (0.0-0.2) Sodium Level 142mmol/L (136-145) Potassium Level 3.8mmol/L (3.5-5.1) Chloride Level 110mmol/L (98-107) Carbon Dioxide Level 24mmol/L (21-32) Anion Gap 8 (6-14) Blood Urea Nitrogen 38mg/dL (7-20) Creatinine 1.2mg/dL (0.6-1.0) Estimated GFR (Cockcroft-Gault) 43.0 Glucose Level 80mg/dL (70-99) Calcium Level 7.6mg/dL (8.5-10.1) Laboratory Tests Test 03/12/16 18:20 03/13/16 05:00 Troponin I Quantitative 0.036ng/mL (0.000-0.055) White Blood Count 8.7x10^3/uL (4.0-11.0) Red Blood Count 3.04x10^6/uL (3.50-5.40) Hemoglobin 9.5g/dL (12.0-15.5) Hematocrit 27.4% (36.0-47.0) Mean Corpuscular Volume 90fL (79-100) Mean Corpuscular Hemoglobin 31pg (25-35) Mean Corpuscular Hemoglobin Concent 35g/dL (31-37) Red Cell Distribution Width 15.2% (11.5-14.5) Platelet Count 107x10^3/uL (140-400) Neutrophils (%) (Auto) 77% (31-73) Lymphocytes (%) (Auto) 14% (24-48) Monocytes (%) (Auto) 7% (0-9) Eosinophils (%) (Auto) 1% (0-3) Basophils (%) (Auto) 0% (0-3) Neutrophils # (Auto) 6.7x10^3uL (1.8-7.7) Lymphocytes # (Auto) 1.2x10^3/uL (1.0-4.8) Monocytes # (Auto) 0.6x10^3/uL (0.0-1.1) Eosinophils # (Auto) 0.1x10^3/uL (0.0-0.7) Basophils # (Auto) 0.0x10^3/uL (0.0-0.2) Sodium Level 142mmol/L (136-145) Potassium Level 3.8mmol/L (3.5-5.1) Chloride Level 110mmol/L (98-107) Carbon Dioxide Level 24mmol/L (21-32) Anion Gap 8 (6-14) Blood Urea Nitrogen 38mg/dL (7-20) Creatinine 1.2mg/dL (0.6-1.0) Estimated GFR (Cockcroft-Gault) 43.0 Glucose Level 80mg/dL (70-99) Calcium Level 7.6mg/dL (8.5-10.1) Medications Current Medications Ondansetron HCl (Zofran) 4 mg PRN Q8HRS PRN IV NAUSEA/VOMITING; Start 03/11/16 at 23:00; Stop 03/12/16 at 08:58; Status DC Acetaminophen (Tylenol) 650 mg PRN Q4HRS PRN PO FEVER; Start 03/11/16 at 23:00; Stop 03/12/16 at 22:59; Status DC Furosemide (Lasix) 20 mg 1X ONCE IVP Last administered on 03/12/16 06:07; Start 03/12/16 at 04:00; Stop 03/12/16 at 04:01; Status DC Nystatin 1 ryan 1 ryan BID TP Last administered on 03/13/16 09:23; Start 03/12/16 at 09:00 Pantoprazole Sodium/Sodium Chloride (Protonix Iv/Iv Sodium Chloride 0.9% 100ml) 100 ml @ 10 mls/hr Q10H IV Last administered on 03/13/16 09:23; Start 03/12/16 at 08:30 Iohexol (Omnipaque 240 Mg/ml) 30 ml 1X ONCE PO ; Start 03/12/16 at 08:45; Stop 03/12/16 at 08:46; Status DC Info (Do NOT chart on this entry -- for MONITORING) 1 each PRN DAILY PRN MC SEE COMMENTS; Start 03/12/16 at 08:45; Stop 03/14/16 at 08:44 Ondansetron HCl (Zofran) 4 mg PRN Q6HRS PRN IV NAUSEA/VOMITING; Start 03/12/16 at 08:56 Ondansetron HCl (Zofran) 4 mg PRN Q6HRS PRN IV Nausea; Start 03/13/16 at 07:00; Stop 03/14/16 at 06:59 Fentanyl Citrate (Fentanyl 2ml Vial) 25 mcg PRN Q5MIN PRN IV MILD PAIN; Start 03/13/16 at 07:00; Stop 03/14/16 at 06:59 Fentanyl Citrate (Fentanyl 2ml Vial) 50 mcg PRN Q5MIN PRN IV MODERATE PAIN; Start 03/13/16 at 07:00; Stop 03/14/16 at 06:59 Morphine Sulfate 1 mg 1 mg PRN Q10MIN PRN IV SEVERE PAIN; Start 03/13/16 at 07: 00; Stop 03/14/16 at 06:59 Lactated Ringer's (Iv Lactated Ringers) 1,000 ml @ 0 mls/hr Q0M IV Last administered on 03/13/16t 10:06; Start 03/13/16 at 07:00; Stop 03/13/16 at 18:59 Lidocaine HCl 2 ml 1X PRN PRN ID IV START; Start 03/13/16 at 07:00; Stop at 06:59 Hydromorphone HCl (Dilaudid) 0.5 mg PRN Q10MIN PRN IV SEVERE PAIN, Second choice; Start 03/13/16 at 07:00; Stop 03/14/16 at 06:59 Prochlorperazine Edisylate (Compazine) 5 mg PACU PRN PRN IV NAUSEA; Start at 07:00; Stop 03/14/16 at 06:59 Vitamin A/Vitamin D 1 ryan 1 ryan PRN TID PRN TP SKIN PROTECTION; Start 03/12/16 at 17:30 Propofol (Diprivan) 20 ml @ As Directed STK-MED ONCE IV ; Start 03/13/16 at 10:03 ; Stop 03/13/16 at 10:04; Status DC Lidocaine HCl (Lidocaine Pf 2% Vial) 5 ml STK-MED ONCE .ROUTE ; Start 03/13/16 at 10:03; Stop 03/13/16 at 10:04; Status DC Active Scripts Active Reported Metoprolol Tartrate 50 Mg Tablet 1 Tab PO BID Pradaxa (Dabigatran Etexilate Mesylate) 150 Mg Capsule 1 Cap PO BID Aspirin 81 Mg Tab.chew 81 Mg PO Vitals/I & O Vital Sign - Last 24 Hours 03/12/16 03/12/16 03/12/16 03/12/16 12:00 12:00 13:00 14:00 Temp 97.2 97.2 Pulse 70 70 78 Resp 11 11 10 B/P 105/49 Pulse Ox 99 99 99 O2 Delivery Room Air Room Air Room Air Room Air 03/12/16 03/12/16 03/12/16 03/12/16 15:00 16:00 16:00 17:00 Temp 98.8 98.8 Pulse 72 70 77 Resp 10 10 12 B/P 125/61 Pulse Ox 99 99 100 O2 Delivery Room Air Room Air Room Air Room Air 03/12/16 03/12/16 03/12/16 03/12/16 18:00 19:00 20:00 20:00 Temp 98.9 98.9 Pulse 76 76 84 Resp 11 12 12 B/P 104/46 153/79 Pulse Ox 99 99 98 O2 Delivery Room Air Room Air Room Air Room Air 03/12/16 03/12/16 03/12/16 03/13/16 21:00 22:00 23:00 00:00 Pulse 90 85 87 Resp 12 12 12 B/P 125/63 135/61 122/62 Pulse Ox 99 98 98 O2 Delivery Room Air Room Air Room Air Room Air 03/13/16 03/13/16 03/13/16 03/13/16 00:00 01:00 02:00 03:00 Temp 98.6 98.6 Pulse 73 76 74 74 Resp 12 12 13 13 B/P 143/63 106/48 105/43 123/50 Pulse Ox 98 98 98 99 O2 Delivery Room Air Room Air Room Air Room Air 03/13/16 03/13/16 03/13/16 03/13/16 04:00 04:00 05:00 06:00 Temp 98.7 98.7 Pulse 76 74 76 Resp 14 13 12 B/P 108/49 98/43 114/50 Pulse Ox 97 97 99 O2 Delivery Room Air Room Air Room Air Room Air 03/13/16 03/13/16 03/13/16 03/13/16 07:00 08:00 08:00 09:00 Temp 98.9 98.9 Pulse 72 70 80 Resp 13 11 13 B/P 111/54 111/54 123/55 Pulse Ox 96 98 99 O2 Delivery Room Air Room Air Room Air Room Air 03/13/16 10:04 Temp 98.2 98.2 Pulse 100 Resp 18 Pulse Ox 99 Intake and Output 03/12/16 03/12/16 03/13/16 15:00 23:00 07:00 Intake Total 30 ml 180 ml 0 ml Balance 30 ml 180 ml 0 ml CHI JAY MD Mar 13, 2016 10:26
--- NOTE | 2016-03-13 10:54 | PDOC4 ---
Operative Note Operative Note EGD Meds propofol per anesthesia Pre-op dx acute blood loss anemia Post-op dx non-erosive gastritis old retained blood near ampulla suggestive of post- sphincterotomy bleed Plan advance diet serial cbcs hold pradaxa an additional 72 hours PO PPI advance diet ETIENNE HERNANDEZ MD Mar 13, 2016 10:54
[2016-03-13] MEDS ORDERED: PANTOPRAZOLE 40 MG TABLET. PO SCH (11:00)
[2016-03-13] MEDS ORDERED: PANT40GR PO (14:07)
[2016-03-13] MEDS ORDERED: PANT40TA3 PO (14:09)
--- NOTE | 2016-03-13 14:48 | PDOC3 ---
Discharge Summary Visit Information Date of Admission: Mar 11, 2016 Date of Discharge: Mar 13, 2016 Admitting Diagnosis Comment: 1. SEVERE ACUTE SYMPTOMATIC ANEMIA, precipitous drop in hgb, hgb 3 on ASA, nSAIDs and PRADAXA at home -s/p 3 units pRBC - EGD CLEAN 2. Superficial candidiasis in the groin - nystatin; wound care 3. Urinary incontinence 4. R hand and pelvic contractures - PT/OT - m,ay benefit from muscle relaxant? 5. Hx CVA 2012, wheel chair bound - cant particiapte with rehab hence will go home with dtr 6. Acute encephalopathy likely sec to current active med issues i,.e. # 1 7. HTN - hold Metoprolol for now 8. Trun q2, unfortuantely SCDS only Final Diagnosis Problems Medical Problems: (1) Acute blood loss anemia Status: Acute (2) Symptomatic anemia Status: Acute Brief Hospital Course Allergies Allergies Coded Allergies Type Severity Reaction Last Updated Verified No Known Drug Allergies 03/13/16 No Vital Signs Vital Signs Date Time Temp Pulse Resp B/P Pulse Ox O2 Delivery O2 Flow Rate FiO2 03/13/16 13:00 99 12 130/68 100 Room Air 03/13/16 11:10 98.2 2 98.2 Lab Results Laboratory Tests Test 03/11/16 22:30 03/12/16 01:30 03/12/16 08:53 03/12/16 09:25 White Blood Count 9.8x10^3/uL (4.0-11.0) 10.6x10^3/uL (4.0-11.0) Red Blood Count 1.22x10^6/uL (3.50-5.40) 3.37x10^6/uL (3.50-5.40) Hemoglobin 3.8g/dL (12.0-15.5) 10.3g/dL (12.0-15.5) Hematocrit 11.7% (36.0-47.0) 30.6% (36.0-47.0) Mean Corpuscular Volume 96fL (79-100) 91fL (79-100) Mean Corpuscular Hemoglobin 31pg (25-35) 31pg (25-35) Mean Corpuscular Hemoglobin Concent 32g/dL (31-37) 34g/dL (31-37) Red Cell Distribution Width 20.1% (11.5-14.5) 14.8% (11.5-14.5) Platelet Count 117x10^3/uL (140-400) 108x10^3/uL (140-400) Neutrophils (%) (Auto) 86% (31-73) 81% (31-73) Lymphocytes (%) (Auto) 9% (24-48) 12% (24-48) Monocytes (%) (Auto) 5% (0-9) 6% (0-9) Eosinophils (%) (Auto) 1% (0-3) 1% (0-3) Basophils (%) (Auto) 0% (0-3) 0% (0-3) Neutrophils # (Auto) 8.4x10^3uL (1.8-7.7) 8.6x10^3uL (1.8-7.7) Lymphocytes # (Auto) 0.9x10^3/uL (1.0-4.8) 1.3x10^3/uL (1.0-4.8) Monocytes # (Auto) 0.4x10^3/uL (0.0-1.1) 0.6x10^3/uL (0.0-1.1) Eosinophils # (Auto) 0.0x10^3/uL (0.0-0.7) 0.1x10^3/uL (0.0-0.7) Basophils # (Auto) 0.0x10^3/uL (0.0-0.2) 0.0x10^3/uL (0.0-0.2) Segmented Neutrophils % 95% (35-66) Lymphocytes % 4% (24-48) Monocytes % 1% (0-10) Platelet Estimate Decreased (ADEQUATE) Polychromasia Slight Hypochromasia Mod Basophilic Stippling Present Anisocytosis Mod Sodium Level 143mmol/L (136-145) Potassium Level 4.3mmol/L (3.5-5.1) Chloride Level 112mmol/L (98-107) Carbon Dioxide Level 25mmol/L (21-32) Anion Gap 6 (6-14) Blood Urea Nitrogen 34mg/dL (7-20) Creatinine 1.2mg/dL (0.6-1.0) Estimated GFR (Cockcroft-Gault) 43.0 BUN/Creatinine Ratio 28 (6-20) Glucose Level 141mg/dL (70-99) Calcium Level 7.7mg/dL (8.5-10.1) Total Bilirubin 0.3mg/dL (0.2-1.0) Aspartate Amino Transf (AST/SGOT) 14U/L (15-37) Alanine Aminotransferase (ALT/SGPT) 13U/L (14-59) Alkaline Phosphatase 60U/L (46-116) Troponin I Quantitative 0.053ng/mL (0.000-0.055) GM-Nvf-K-Type Natriuretic Peptide 4254pg/mL (0-449) Total Protein 5.6g/dL (6.4-8.2) Albumin 2.1g/dL (3.4-5.0) Albumin/Globulin Ratio 0.6 (1.0-1.7) Nasal Screen MRSA (PCR) Negative (Negative) Glucose (Fingerstick) 106mg/dL (70-99) Test 03/12/16 18:20 03/13/16 05:00 Troponin I Quantitative 0.036ng/mL (0.000-0.055) White Blood Count 8.7x10^3/uL (4.0-11.0) Red Blood Count 3.04x10^6/uL (3.50-5.40) Hemoglobin 9.5g/dL (12.0-15.5) Hematocrit 27.4% (36.0-47.0) Mean Corpuscular Volume 90fL (79-100) Mean Corpuscular Hemoglobin 31pg (25-35) Mean Corpuscular Hemoglobin Concent 35g/dL (31-37) Red Cell Distribution Width 15.2% (11.5-14.5) Platelet Count 107x10^3/uL (140-400) Neutrophils (%) (Auto) 77% (31-73) Lymphocytes (%) (Auto) 14% (24-48) Monocytes (%) (Auto) 7% (0-9) Eosinophils (%) (Auto) 1% (0-3) Basophils (%) (Auto) 0% (0-3) Neutrophils # (Auto) 6.7x10^3uL (1.8-7.7) Lymphocytes # (Auto) 1.2x10^3/uL (1.0-4.8) Monocytes # (Auto) 0.6x10^3/uL (0.0-1.1) Eosinophils # (Auto) 0.1x10^3/uL (0.0-0.7) Basophils # (Auto) 0.0x10^3/uL (0.0-0.2) Sodium Level 142mmol/L (136-145) Potassium Level 3.8mmol/L (3.5-5.1) Chloride Level 110mmol/L (98-107) Carbon Dioxide Level 24mmol/L (21-32) Anion Gap 8 (6-14) Blood Urea Nitrogen 38mg/dL (7-20) Creatinine 1.2mg/dL (0.6-1.0) Estimated GFR (Cockcroft-Gault) 43.0 Glucose Level 80mg/dL (70-99) Calcium Level 7.6mg/dL (8.5-10.1) Laboratory Tests Test 03/12/16 18:20 03/13/16 05:00 Troponin I Quantitative 0.036ng/mL (0.000-0.055) White Blood Count 8.7x10^3/uL (4.0-11.0) Red Blood Count 3.04x10^6/uL (3.50-5.40) Hemoglobin 9.5g/dL (12.0-15.5) Hematocrit 27.4% (36.0-47.0) Mean Corpuscular Volume 90fL (79-100) Mean Corpuscular Hemoglobin 31pg (25-35) Mean Corpuscular Hemoglobin Concent 35g/dL (31-37) Red Cell Distribution Width 15.2% (11.5-14.5) Platelet Count 107x10^3/uL (140-400) Neutrophils (%) (Auto) 77% (31-73) Lymphocytes (%) (Auto) 14% (24-48) Monocytes (%) (Auto) 7% (0-9) Eosinophils (%) (Auto) 1% (0-3) Basophils (%) (Auto) 0% (0-3) Neutrophils # (Auto) 6.7x10^3uL (1.8-7.7) Lymphocytes # (Auto) 1.2x10^3/uL (1.0-4.8) Monocytes # (Auto) 0.6x10^3/uL (0.0-1.1) Eosinophils # (Auto) 0.1x10^3/uL (0.0-0.7) Basophils # (Auto) 0.0x10^3/uL (0.0-0.2) Sodium Level 142mmol/L (136-145) Potassium Level 3.8mmol/L (3.5-5.1) Chloride Level 110mmol/L (98-107) Carbon Dioxide Level 24mmol/L (21-32) Anion Gap 8 (6-14) Blood Urea Nitrogen 38mg/dL (7-20) Creatinine 1.2mg/dL (0.6-1.0) Estimated GFR (Cockcroft-Gault) 43.0 Glucose Level 80mg/dL (70-99) Calcium Level 7.6mg/dL (8.5-10.1) Brief Hospital Course Ms. Schultz is a 80 old female on pradaxa, nsadis reg for OA, and asa 79 admitted for hgb 3. EGD clean. s/p 3 pRBC, hgb 10 on dc. Full code. lots of contractures, hx CVA before, no benefit with rehab. Will go home with dtr. Dtr wishes to take her home. Dw MANAGER VOICE 2 visits today - see earlier progress note dc time 40 mins cumultaive tday Discharge Information Condition at Discharge: Improved, Stable Disposition/Orders: D/C to Home Scheduled Dabigatran Etexilate Mesylate (Pradaxa) 1 CAP PO BID (Reported) Metoprolol Tartrate (Metoprolol Tartrate) 1 TAB PO BID (Reported) Pantoprazole Sodium (Protonix) 1 TAB PO DAILY (Reported) Miscellaneous Medications Aspirin (Aspirin) 81 MG PO (Reported) Discontinued Medications Pantoprazole Sodium (Protonix) 40 MG PO DAILY (Reported) MARCELINO DIAZ MD Mar 13, 2016 14:48
[2016-03-16] MEDS ORDERED: PANT40TA3 PO (12:55)
[2016-03-16] MEDS ORDERED: METO50TA2 PO (12:55)
[2016-03-16] MEDS ORDERED: ASPI-482 PO (12:55)
[2016-03-16] MEDS ORDERED: DABI150C PO (12:55)
== END 2016-03-13 14:45 | disposition home or self-care (01) | DRG 811 ==
LOC: ER 21:11 → 1 WEST ICU 23:00
PROVIDERS: ADMIT Internal Medicine; ATTEND Internal Medicine
PROC: 30233N1 Transfusion of Nonautologous Red Blood Cells into Peripheral Vein, Percutaneous Approach (ICD-10-PCS; principal; 2016-03-12)
PROC: 0DJ08ZZ Inspection of Upper Intestinal Tract, Via Natural or Artificial Opening Endoscopic (ICD-10-PCS; 2016-03-13)
DX: D62 Acute posthemorrhagic anemia (principal); G93.40 Encephalopathy, unspecified; I69.354 Hemiplegia and hemiparesis following cerebral infarction affecting left non-dominant side; B37.2 Candidiasis of skin and nail; E11.9 Type 2 diabetes mellitus without complications; I10 Essential (primary) hypertension; K21.9 Gastro-esophageal reflux disease without esophagitis; K56.41 Fecal impaction; K57.30 Diverticulosis of large intestine without perforation or abscess without bleeding; M19.90 Unspecified osteoarthritis, unspecified site; R32 Unspecified urinary incontinence; Z79.82 Long term (current) use of aspirin; Z90.49 Acquired absence of other specified parts of digestive tract; Z99.3 Dependence on wheelchair
CPT/HCPCS: 36415; 70450; 71010; 74176; 80048; 80053; 82947; 83880; 84484; 85007; 85027; 86850; 86900; 86901; 86920; 87641; 93005; C9113; J2704; J7120; P9016; 99285-25